=== PATIENT | female | born 1970 | race Caucasian/White ===

== ENCOUNTER 2016-05-23 13:54 | Emergency (ER) | payer BC ==
[2016-05-23 15:04] LABS: Hematocrit 27 % (35-47); Hemoglobin 7.6 g/dl (12.0-16.0); Mean Corpuscular HGB Conc 28 g/dl (31-36); Mean Corpuscular Hemoglobin 16 pg (27-31); Mean Platelet Volume 9 um3 (7.4-10.4); Red Blood Count 4.77 10^6/ul (4.0-5.4); Red Cell Distribution Width 20 % (10.5-15); White Blood Count 5.2 10^3/ul (3.5-10.8)
[2016-05-23 15:07] LABS: Comments Flag Yes; Mean Corpuscular Volume 56 fL (80-97)
--- NOTE | 2016-05-23 15:09 | RAD ---
INDICATION: Chest pain right side. COMPARISON: Comparison is made with a prior chest x-ray study from June 25, 2013. TECHNIQUE: Dual-energy PA and lateral views of the chest were obtained. FINDINGS: The heart is within normal limits in size. Mediastinal and hilar contours appear within normal limits. The lungs are clear. No pleural effusion or pneumothorax is seen. IMPRESSION: NO EVIDENCE FOR ACTIVE CARDIOPULMONARY DISEASE.
[2016-05-23 15:12] LABS: Urine Bacteria Absent (Absent); Urine Bilirubin Negative (Negative); Urine Glucose Negative (Negative); Urine Nitrite Negative (Negative)
[2016-05-23 15:15] LABS: Albumin 4.3 g/dL (3.2-5.2); BUN/Creatinine Ratio 23.9 (8-20); C Reactive Protein 1.2 mg/L (< 5.00); Calcium 9.1 mg/dL (8.6-10.3); EGFR African American 120.8 (>60); EGFR Non-African American 93.9 (>60); Globulin 3.1 g/dL (2-4); Potassium 3.6 mmol/L (3.5-5.0); Total Bilirubin 0.8 mg/dL (0.2-1.0); Total Protein 7.4 g/dL (6.4-8.9)
--- NOTE | 2016-05-23 15:19 | RAD ---
INDICATION: Right flank abdominal pain. COMPARISON: Comparison is made with a prior CT of the abdomen and pelvis from September 30, 2011. TECHNIQUE: A CT scan of the abdomen and pelvis was performed without intravenous or oral contrast. Contiguous axial sections were obtained from the lung bases through the symphysis pubis. Images were reconstructed in the coronal and sagittal planes. FINDINGS: The lung bases are clear. No pleural effusion is present. The liver and spleen are within normal limits in size without significant focal abnormality on this noncontrast study. No calcified gallstones are seen. The pancreas appears to be within normal limits in size. The adrenal glands and kidneys are normal in size. There are couple punctate 1 mm right renal calculi. No hydronephrosis is seen. There are calcifications present bilaterally in the pelvis limiting evaluation of the distal ureters although no definite ureteral calculus is seen. The aorta is normal in caliber with mild calcific plaque present. No significant enlarged retroperitoneal lymph nodes are seen. Postsurgical changes are noted in the stomach. There is a suture line present along the fundus and body of the stomach suggestive of a gastric sleeve procedure. The stomach, small and large bowel appear nondistended. The appendix appears to be within normal limits. There is mild descending and sigmoid diverticulosis without evidence for diverticulitis. There is a small periumbilical hernia containing fat. The uterus is moderately enlarged and anteverted in position. No free intraperitoneal air or fluid is seen. No significant focal osseous abnormality is seen. IMPRESSION: 1. SMALL NONOBSTRUCTING RIGHT RENAL CALCULI. 2. NO EVIDENCE FOR ACUTE FINDING OR CAUSE FOR THE PATIENT'S ABDOMINAL PAIN IS SEEN. 3. MILD TO MODERATE ENLARGEMENT OF THE UTERUS.
--- NOTE | 2016-05-23 15:24 | RAD ---
INDICATION: Right flank and back pain. COMPARISON: Comparison is made with a prior CT of the lumbar spine from October 10, 2012. TECHNIQUE: Contiguous axial sections were obtained beginning above the T10 vertebra and continuing through the L5-S1 disc space. Images were reconstructed in the sagittal and coronal planes. FINDINGS: There is a mild lumbar scoliosis convex toward the left side. The vertebra are otherwise in normal alignment. No significant focal osseous abnormality or fracture is seen. At the L4-L5 level there is a mild broad-based disc bulge. There are mild hypertrophic changes within the facet joints. There is mild spinal canal narrowing and mild neural foraminal narrowing on the left side. At the L5-S1 level there is mild posterior endplate spurring associated with a mild broad-based disc bulge. No significant spinal canal narrowing is present. Neural foramen appear patent on both sides. IMPRESSION: MILD DEGENERATIVE DISC DISEASE AT THE L4-L5 AND L5-S1 LEVELS. IF THE PATIENT'S SYMPTOMS PERSIST CONSIDER MR IMAGING FOR FURTHER EVALUATION.
--- NOTE | 2016-05-23 15:59 | RAD ---
INDICATION: Right flank abdominal pain. COMPARISON: Correlation is made with a prior CT of the abdomen and pelvis of the same date. TECHNIQUE: Multiple real-time images of the right upper quadrant were obtained. FINDINGS: The gallbladder appear normal. No gallbladder wall thickening or pericholecystic fluid is present. No intra or extrahepatic ductal distention is present. The common bile duct measured 0.3 cm in diameter. The liver is normal in size without significant focal abnormality. The pancreas is partially obscured by overlying bowel gas. The right kidney is normal in size without evidence for hydronephrosis. IMPRESSION: NEGATIVE EXAM.
[2016-05-23] MEDS ORDERED: Pantoprazole IV* 40 MG IV ONE (16:43)
[2016-05-23] MEDS ORDERED: Al Hydrox/Mg Hydrox/Simet LIQ* 30 ML UDC PO ONE (16:43)
[2016-05-23] MEDS ORDERED: Lidocaine 2% VISCOUS* 15 ML UDC PO ONE (16:43)
[2016-05-23] MEDS ORDERED: NS 0.9% 1000 ML* 1,000 ML IV ONE (16:43)
[2016-05-23] MEDS ORDERED: Iohexol 350* (CONTRAST) 500 ML MDV IV ONE (17:04)
--- NOTE | 2016-05-23 17:34 | RAD ---
INDICATION: Chest pain positive d-dimer, history of sarcoidosis. COMPARISON: Comparison is made with a prior CT of the chest from October 03, 2009. TECHNIQUE: A CT angiogram of the chest was performed with intravenous following intravenous injection of 61 ml of Omnipaque 350 nonionic contrast. Contiguous axial sections were obtained from the lung apices through the lung bases. Images were reconstructed in the coronal and sagittal planes. FINDINGS: There is relatively homogeneous opacification of the pulmonary arteries. No intraluminal filling defect or pulmonary embolism is seen. The heart is within normal limits in size. No pericardial effusion is present. The thoracic aorta is normal in caliber and demonstrates homogeneous contrast opacification. No significant enlarged mediastinal or hilar lymph nodes are seen. The lungs are clear. No pleural effusion is seen. No significant focal osseous abnormality is seen. IMPRESSION: NO EVIDENCE FOR PULMONARY EMBOLISM.
--- NOTE | 2016-05-23 18:30 | ED ---
Erik Kidd Billy, scribed for Sergo Wyatt MD on 05/23/16 at 1433 . Back Pain - HPI Summary HPI Summary: Patient is a 46 year-old female coming to [facility] presenting with three days of constant right flank pain. Pain has been gradually worsening and increasing in area. Pain severity 4/10, worse with certain movements. She woke up with diaphoresis three days ago, and she has had intermittent nausea the last 2 days. Patient denies any abdominal pain or urinary symptoms. Denies any rashes. Denies cough or shortness or breath. - History of Current Complaint Chief Complaint: EDAbdPain Stated Complaint: POSSIBLE GALL BLADDER PAIN Time Seen by Provider: 05/23/16 14:15 Hx Obtained From: Patient Onset/Duration: Gradual Onset, Lasting Days, Still Present Onset/Duration: Started Days Ago Timing: Constant Back Pain Location: Is Discrete @ Severity Initially: Moderate Severity Currently: Moderate Pain Intensity: 4 Pain Scale Used: 0-10 Numeric Character: Sharp Aggravating Symptom(s): Nothing Alleviating Symptom(s): Nothing Associated Signs And Symptoms: Positive: Flank Pain. Negative: Abdominal Pain - Allergies/Home Medications Allergies/Adverse Reactions: Allergies Allergy/AdvReac Type Severity Reaction Status Date / Time Amoxicillin Allergy Vomiting Verified 03/27/14 07:20 PMH/Surg Hx/FS Hx/Imm Hx Respiratory History: Reports: Other Respiratory Problems/Disorders - SARCOIDOSIS History: Reports: Hx Kidney Infection - TEENS, Hx Kidney Stones - 10 YRS AGO Musculoskeletal History: Reports: Hx Scoliosis Sensory History: Reports: Hx Contacts or Glasses - GLASSES Denies: Hx Hearing Aid Opthamlomology History: Reports: Hx Contacts or Glasses - GLASSES Psychiatric History: Reports: Hx Anxiety - WELL CONTROLLED WITH PAXIL - Cancer History Hx Chemotherapy: No Hx Radiation Therapy: No - Surgical History Surgery Procedure, Year, and Place: LYMPH NODE BX NECK 2004 [facility] [place]. TUBAL 2004 [facility] [place]. CSECTION X2 [facility] [place] Hx Anesthesia Reactions: No Infectious Disease History: No Infectious Disease History: Denies: Traveled Outside the [place] in Last 30 Days - Family History Family History: No family history of breast cancer, malignant hyperthermia, or anesthesia reaction. - Social History Alcohol Use: None Substance Use Type: Reports: None Smoking Status (MU): Never Smoked Tobacco Review of Systems Positive: Skin Diaphoresis. Negative: Fever, Chills Negative: Shortness Of Breath, Cough Positive: Nausea. Negative: Abdominal Pain Positive: flank pain. Negative: dysuria, frequency, hematuria, urgency All Other Systems Reviewed And Are Negative: Yes Physical Exam Triage Information Reviewed: Yes Vital Signs On Initial Exam: Initial Vitals Temp Pulse Resp BP Pulse Ox 98.6 F 66 20 126/60 100 05/23/16 13:57 05/23/16 13:57 05/23/16 13:57 05/23/16 13:57 05/23/16 13:57 Vital Signs Reviewed: Yes Appearance: Positive: Well-Appearing, No Pain Distress Skin: Positive: Warm, Skin Color Reflects Adequate Perfusion, Dry Head/Face: Positive: Normal Head/Face Inspection Eyes: Positive: EOMI, CARMEN ENT: Positive: Normal ENT inspection Neck: Positive: Supple, Nontender Respiratory/Lung Sounds: Positive: Clear to Auscultation, Breath Sounds Present Cardiovascular: Positive: RRR Abdomen Description: Positive: Nontender, Soft Bowel Sounds: Positive: Present Musculoskeletal: Positive: Normal, Strength/ROM Intact Neurological: Positive: Normal, Sensory/Motor Intact, Alert, Oriented to Person Place, Time Psychiatric: Positive: Affect/Mood Appropriate - Esmer Coma Scale Coma Scale Total: 15 Diagnostics - Vital Signs Vital Signs Temp Pulse Resp BP Pulse Ox 05/23/16 14:19 60 100 05/23/16 14:16 107/51 05/23/16 13:57 98.6 F 66 20 126/60 100 - Laboratory Lab Results: Lab Results 05/23/16 05/23/16 05/23/16 Range/Units 14:25 14:25 14:25 WBC 5.2 (3.5-10.8) 10^3/ul RBC 4.77 (4.0-5.4) 10^6/ul Hgb 7.6 L (12.0-16.0) g/dl Hct 27 L (35-47) % MCV 56 L (80-97) fL MCH 16 L (27-31) pg MCHC 28 L (31-36) g/dl RDW 20 H (10.5-15) % Plt Count 200 (150-450) 10^3/ul MPV 9 (7.4-10.4) um3 Neut % (Auto) 61.2 (38-83) % Lymph % (Auto) 27.1 (25-47) % Leake % (Auto) 8.9 (1-9) % Eos % (Auto) 1.8 (0-6) % Baso % (Auto) 1.0 (0-2) % Absolute Neuts (auto) 3.2 (1.5-7.7) 10^3/ul Absolute Lymphs (auto) 1.4 (1.0-4.8) 10^3/ul Absolute Monos (auto) 0.5 (0-0.8) 10^3/ul Absolute Eos (auto) 0.1 (0-0.6) 10^3/ul Absolute Basos (auto) 0.1 (0-0.2) 10^3/ul Absolute Nucleated RBC 0 10^3/ul Nucleated RBC % 0.1 INR (Anticoag Therapy) 0.98 (0.89-1.11) APTT 24.5 L (26.0-36.3) seconds D-Dimer, Quantitative 344 H (Less Than 230) ng/mL Sodium (133-145) mmol/L Potassium (3.5-5.0) mmol/L Chloride (101-111) mmol/L Carbon Dioxide (22-32) mmol/L Anion Gap (2-11) mmol/L BUN (6-24) mg/dL Creatinine (0.51-0.95) mg/dL Est GFR ( Amer) (>60) Est GFR (Non-Af Amer) (>60) BUN/Creatinine Ratio (8-20) Glucose (70-100) mg/dL Lactic Acid (0.5-2.0) mmol/L Calcium (8.6-10.3) mg/dL Total Bilirubin (0.2-1.0) mg/dL AST (13-39) U/L ALT (7-52) U/L Alkaline Phosphatase (34-104) U/L C-Reactive Protein (< 5.00) mg/L Total Protein (6.4-8.9) g/dL Albumin (3.2-5.2) g/dL Globulin (2-4) g/dL Albumin/Globulin Ratio (1-3) Lipase (11.0-82.0) U/L Urine Color Yellow Urine Appearance Cloudy Urine pH 7.0 (5-9) Ur Specific [place] 1.019 (1.010-1.030) Urine Protein Negative (Negative) Urine Ketones Negative (Negative) Urine Blood Negative (Negative) Urine Nitrate Negative (Negative) Urine Bilirubin Negative (Negative) Urine Urobilinogen Negative (Negative) Ur Leukocyte Esterase Trace H (Negative) Urine WBC (Auto) Trace(0-5/hpf) (Absent) Urine RBC (Auto) Absent (Absent) Ur Squamous Epith Cells Present H (Absent) Urine Bacteria Absent (Absent) Urine Glucose Negative (Negative) 05/23/16 05/23/16 Range/Units 14:25 14:25 WBC (3.5-10.8) 10^3/ul RBC (4.0-5.4) 10^6/ul Hgb (12.0-16.0) g/dl Hct (35-47) % MCV (80-97) fL MCH (27-31) pg MCHC (31-36) g/dl RDW (10.5-15) % Plt Count (150-450) 10^3/ul MPV (7.4-10.4) um3 Neut % (Auto) (38-83) % Lymph % (Auto) (25-47) % Leake % (Auto) (1-9) % Eos % (Auto) (0-6) % Baso % (Auto) (0-2) % Absolute Neuts (auto) (1.5-7.7) 10^3/ul Absolute Lymphs (auto) (1.0-4.8) 10^3/ul Absolute Monos (auto) (0-0.8) 10^3/ul Absolute Eos (auto) (0-0.6) 10^3/ul Absolute Basos (auto) (0-0.2) 10^3/ul Absolute Nucleated RBC 10^3/ul Nucleated RBC % INR (Anticoag Therapy) (0.89-1.11) APTT (26.0-36.3) seconds D-Dimer, Quantitative (Less Than 230) ng/mL Sodium 137 (133-145) mmol/L Potassium 3.6 (3.5-5.0) mmol/L Chloride 103 (101-111) mmol/L Carbon Dioxide 28 (22-32) mmol/L Anion Gap 6 (2-11) mmol/L BUN 16 (6-24) mg/dL Creatinine 0.67 (0.51-0.95) mg/dL Est GFR ( Amer) 120.8 (>60) Est GFR (Non-Af Amer) 93.9 (>60) BUN/Creatinine Ratio 23.9 H (8-20) Glucose 85 (70-100) mg/dL Lactic Acid 1.0 (0.5-2.0) mmol/L Calcium 9.1 (8.6-10.3) mg/dL Total Bilirubin 0.80 (0.2-1.0) mg/dL AST 19 (13-39) U/L ALT 15 (7-52) U/L Alkaline Phosphatase 56 (34-104) U/L C-Reactive Protein 1.20 (< 5.00) mg/L Total Protein 7.4 (6.4-8.9) g/dL Albumin 4.3 (3.2-5.2) g/dL Globulin 3.1 (2-4) g/dL Albumin/Globulin Ratio 1.4 (1-3) Lipase 35 (11.0-82.0) U/L Urine Color Urine Appearance Urine pH (5-9) Ur Specific [place] (1.010-1.030) Urine Protein (Negative) Urine Ketones (Negative) Urine Blood (Negative) Urine Nitrate (Negative) Urine Bilirubin (Negative) Urine Urobilinogen (Negative) Ur Leukocyte Esterase (Negative) Urine WBC (Auto) (Absent) Urine RBC (Auto) (Absent) Ur Squamous Epith Cells (Absent) Urine Bacteria (Absent) Urine Glucose (Negative) Result Diagrams: 05/23/16 14:25 05/23/16 14:25 Lab Statement: Any lab studies that have been ordered have been reviewed, and results considered in the medical decision making process. - Radiology CXR Xray Interpretation: No Acute Changes Radiology Interpretation Completed By: Radiologist - CT Abd/pel w/o CT Interpretation Completed By: Radiologist - 1. SMALL NONOBSTRUCTING RIGHT RENAL CALCULI. 2. NO EVIDENCE FOR ACUTE FINDING OR CAUSE FOR THE PATIENT'S ABDOMINAL PAIN IS SEEN. 3. MILD TO MODERATE ENLARGEMENT OF THE UTERUS. Lumbar CT Interpretation Completed By: Radiologist - MILD DEGENERATIVE DISC DISEASE AT THE L4-L5 AND L5-S1 LEVELS. IF THE PATIENT'S SYMPTOMS PERSIST CONSIDER MR IMAGING FOR FURTHER EVALUATION. CTA Chest CT Interpretation Completed By: Radiologist - No evidence for pulmonary embolism. - Ultrasound No standard instances Ultrasound Interpretation Completed By: Radiologist - GALLBLADDER ULTRASOUND: Negative exam. Re-Evaluation - Re-Evaluation First Eval Re-Evaluation Time: 18:25 Comment: Labs and imaging reviewed. Back Pain Course/Dx - Course Course Of Treatment: NO CRITICAL CARE TIME. Assessment/Plan: WELL IN ED. DISCUSSED RESULTS WITH PATIENT. DR CARPIO SAW PATIENT IN ED. DISCHARGE HOMER STABLE. PATIENT WILL TAKE IBUPROFEN PRN. DISCHARGE HOME STABLE. - Diagnoses Provider Diagnoses: Flank pain - Provider Notifications Discussed Care of Patient With: Dr. Carpio (surgery) @ 1820: saw patient in the ED. Discharge - Discharge Plan Condition: Stable Disposition: HOME Patient Education Materials: Flank Pain (ED) Referrals: Tanvi Abdi NP [Primary Care Provider] - Additional Instructions: FOLLOW UP WITH YOUR DOCTOR. RETURN TO THE EMERGENCY DEPARTMENT FOR ANY WORSENING OF YOUR CONDITION; PAIN, FEVER, YOU FEEL ILL OR QUESTIONS OR CONCERNS. The documentation as recorded by the Erik mcguire Billy accurately reflects the service I personally performed and the decisions made by me, Sergo Wyatt MD.
[2016-05-23 18:37] VITALS: BP 104/50
== END 2016-05-23 18:36 | disposition home or self-care (01) ==
LOC: ED 13:54
DX: R10.9 Unspecified abdominal pain (principal); R11.0 Nausea
CPT/HCPCS: 36415; 71020; 71275; 72131; 74176; 76705; 80053; 81003; 81015; 83605; 83690; 85025; 85379; 85610; 85730; 86140; 87086; 96374; 99283; A9270-GY; Q9967

== ENCOUNTER 2022-10-06 05:32 | Observation (INO) ==
[2022-10-06] MEDS ORDERED: Al Hydrox/Mg Hydrox/Simet LIQ 30 ML UDC PO ONE (05:36)
[2022-10-06] MEDS ORDERED: Pantoprazole VIAL 40 MG VIAL IV ONE (07:27)
[2022-10-06 07:51] LABS: ABS Lymphocytes 0.8 10^3/uL (1.0-4.8); ABS Monocytes 0.6 10^3/uL (0.0-0.9); ABS Neutrophils 6.3 10^3/uL (1.5-7.6); ABS Nucleated RBC 0.01 10^3/ul; Eosinophil % 0.5 %; Hematocrit 39.5 % (35-45); Hemoglobin 13.8 g/dL (11.5-14.3); Lymphocyte % 9.8 %; Mean Corpuscular Hemoglobin 30.2 pg (27-33); Mean Corpuscular Hgb Conc 35.1 g/dL (31-36); Mean Platelet Volume 7.4 fL (7.5-11.2); Nucleated Red Blood Cells % 0.1 /100 WBC (0.0-0.4); Platelet Count 163 10^3/uL (150-450); Red Blood Count 4.59 10^6/uL (3.63-4.92); Red Cell Distribution Width 13.7 % (12-17); White Blood Count 7.8 10^3/uL (3.8-11.8)
[2022-10-06 08:04] LABS: Calcium 9.3 mg/dL (8.6-10.3); Creatinine, Serum 0.73 mg/dL (0.51-0.95); Magnesium 1.8 mg/dL (1.9-2.7); Phosphorus 2.1 mg/dL (2.5-5.0); Potassium 3.8 mmol/L (3.5-5.0); eGFR CKD-EPI 97.7 (>60)
[2022-10-06 08:12] LABS: High Sensitivity Troponin 1 Hr 4 pg/mL (<15)
[2022-10-06] MEDS ORDERED: Magnesium Sulfate IV 1GM/100ML 1 GM/100 ML BAG IV ONE (08:22)
[2022-10-06] MEDS ORDERED: NS 0.9% 500 ml BAG 500 ML IV ONE (08:22)
[2022-10-06 08:51] LABS: HDL Cholesterol 58.7 mg/dL
[2022-10-06] MEDS ORDERED: Morphine 10 MG/ML VIAL (1 ml) IV ONE (08:55)
[2022-10-06] MEDS ORDERED: Potassium & Sodium Phos 250 mg = 1 PACKET PO ONE (08:58)
[2022-10-06] MEDS ORDERED: Morphine 2 MG/ML SYRINGE IV ONE (09:01)
[2022-10-06] MEDS ORDERED: Morphine 2 MG/ML SYRINGE SUBCUT ONE (09:01)
[2022-10-06] MEDS ORDERED: Regadenoson 0.4 MG/5 ML SYRINGE ONE (13:21)
[2022-10-06 15:33] VITALS: BP 119/63
== END 2022-10-06 15:34 | disposition home or self-care (01) ==
LOC: ED 05:32 → EDHOLD 05:32
PROVIDERS: ADMIT Hospitalist; ATTEND Hospitalist